=== PATIENT | female | born 2005 | race Caucasian/White ===

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

== ENCOUNTER 2024-02-19 16:29 | Emergency (ER) | payer OTHER ==
[~2024-02-19] VITALS: Ht 160 cm; Wt 52.2 kg
[2024-02-19] MEDS ORDERED: hydrOXYzine pamoate 25 MG CAP PO ONE (17:05)
== END 2024-02-19 17:28 | disposition home or self-care (01) ==
LOC: ED 16:29
DX: F41.9 Anxiety disorder, unspecified (principal); F32.A Depression, unspecified; F90.9 Attention-deficit hyperactivity disorder, unspecified type; R07.89 Other chest pain; Z98.890 Other specified postprocedural states